=== PATIENT | male | born 1970 | race Caucasian/White ===

== ENCOUNTER 2017-09-09 12:51 | Inpatient (IN) | payer SELFPAY ==
[~2017-09-09] VITALS: Ht 177.8 cm; Wt 96.8 kg
[2017-09-09] VITALS (14 sets, daily range): BP systolic 107–142; BP diastolic 72–97
[~2017-09-09 12:51] MED LIST: LISI10TA PO; VICODIN
--- OUTSIDE RECORDS SUMMARY | 2017-09-09 12:58 | XMS REPORT | Continuity of Care Document ---
Author Author [facility] Organization [facility] Address Unknown Phone Unavailable Allergies Active Description Code Type Severity Reaction Onset Reported/Identified Relationship to Patient Clinical Status Yes Penicillins [id number] Drug Allergy Unknown N/A 04/17/2013 Medications Problems Date Dx Coded Attending Type Code Diagnosis Diagnosed By 06/24/2013 YONG COLLADO MD Ot 724.2 LUMBAGO 06/24/2013 YONG COLLADO MD Ot V57.1 PHYSICAL THERAPY NEC 07/13/2013 YONG COLLADO MD Ot 305.1 TOBACCO USE DISORDER 07/13/2013 YONG COLLADO MD Ot 401.9 HYPERTENSION NOS 07/13/2013 YONG COLLADO MD Ot 722.52 LUMB/LUMBOSAC DISC DEGEN 07/13/2013 YONG COLLADO MD Ot 729.1 MYALGIA AND MYOSITIS NOS 07/13/2013 YONG COLLADO MD Ot 756.12 SPONDYLOLISTHESIS 07/13/2013 YONG COLLADO MD, Ot V58.69 OTH MED,LT,CURRENT USE 05/29/2016 MOE URBINA DO Ot 724.5 BACKACHE NOS 05/29/2016 YONG COLLADO MD Ot 305.1 TOBACCO USE DISORDER 05/29/2016 YONG COLLADO MD Ot 401.9 HYPERTENSION NOS 05/29/2016 YONG COLLADO MD Ot 722.52 LUMB/LUMBOSAC DISC DEGEN 05/29/2016 YONG COLLADO MD Ot 756.12 SPONDYLOLISTHESIS 05/29/2016 YONG COLLADO MD Ot V58.69 OTH MED,LT,CURRENT USE 05/29/2016 MOE URBINA DO Ot 724.2 LUMBAGO 05/29/2016 MOE URBINA DO Ot V15.88 HISTORY OF FALL 05/29/2016 MOE URBINA DO Ot V45.89 POSTSURGICAL STATES NEC 05/29/2016 MOE URBINA DO Ot M54.9 DORSALGIA, UNSPECIFIED 06/06/2016 MOE URBINA DO Ot M54.9 DORSALGIA, UNSPECIFIED 06/08/2016 MOE URBINA DO Ot M54.9 DORSALGIA, UNSPECIFIED Procedures Results Encounters ACCT No. Visit Date/Time Discharge Status Pt. Type Provider Facility Loc./Unit Complaint [id number] 05/29/2016 13:27:00 2015 23:59:59 CLS Outpatient CIARA MOE STERN [facility] RAD BACK PAIN [id number] 12/11/2013 12:01:00 2013 23:59:59 CLS Outpatient KARISHMAMOE NIETO DO [facility] RAD FALL [id number] 07/13/2013 12:03:00 2012 13:24:00 DIS Outpatient YONG COLLADO MD [facility] CARD DDD LUMBAR [id number] 06/26/2013 07:30:00 2012 23:59:59 CLS Outpatient YONG COLLADO MD [facility] CARD DEGENERATIVE DISC DISEASE-LUMBAR [id number] 06/24/2013 14:47:00 2012 16:17:00 DIS Outpatient YONG COLLADO MD [facility] REHAB LUMBAGO [id number] 05/18/2013 08:17:00 2012 23:59:59 CLS Outpatient MOE URBINA DO [facility] RAD BACK PAIN GOING DOWN LEG GETTING WORSE [id number] 04/17/2013 18:22:00 2012 20:45:00 DIS Emergency
[2017-09-09] MEDS ORDERED: ASPIRIN 81 MG CHEW (CHILDREN'S ASA) ONE (13:00)
[2017-09-09] MEDS ORDERED: NITROGLYCERIN 0.4 MG SL TABS BTL 25'S SL ONE (13:00)
[2017-09-09] MEDS: NITROGLYCERIN 0.4 MG SL TABS BTL 25'S SL PRN ×2 (13:02→13:08)
[2017-09-09] MEDS ORDERED: HEParin 1000 UNIT/ML (10ML VIAL) FOR BOLUS ONE ×2 (13:06→13:11)
[2017-09-09] MEDS ORDERED: CLOPIDOGREL 300 MG (PLAVIX) TABLET PO ONE ×2 (13:06→13:15)
[2017-09-09] MEDS ORDERED: NS IV 1000 ML 1,000 ML ONE (13:06)
[2017-09-09] MEDS ORDERED: LIDOCAINE 1% INJ 50 ML (XYLOCAINE) VIAL ONE (13:06)
[2017-09-09] MEDS ORDERED: HEParin (CATH LAB) 2,000 ML IV ONE (13:07)
[2017-09-09] MEDS ORDERED: NITROGLYCERIN DRIP 25 MG/D5W 250 ML IV ONE (13:07)
[2017-09-09] MEDS ORDERED: fentaNYL INJECTION 100 MCG/2 ML AMP ONE (13:09)
--- OUTSIDE RECORDS SUMMARY | 2017-09-09 13:09 | XMS REPORT | Continuity of Care Document ---
Author Author [facility] Organization [facility] Address Unknown Phone Unavailable Allergies Active Description Code Type Severity Reaction Onset Reported/Identified Relationship to Patient Clinical Status Yes Penicillins [id number] Drug Allergy Unknown N/A 04/17/2013 Medications Problems Date Dx Coded Attending Type Code Diagnosis Diagnosed By 06/24/2013 YONG COLLADO MD Ot 724.2 LUMBAGO 06/24/2013 YONG COLLADO MD Ot V57.1 PHYSICAL THERAPY NEC 07/13/2013 YONG COLLADO MD Ot 305.1 TOBACCO USE DISORDER 07/13/2013 YOGN COLLADO MD Ot 401.9 HYPERTENSION NOS 07/13/2013 [...] Ot V15.88 HISTORY OF FALL 05/29/2016 MOE URBNIA DO Ot V45.89 POSTSURGICAL STATES NEC 05/29/2016 MOE URBINA DO Ot M54.9 DORSALGIA, UNSPECIFIED 06/06/2016 MOE URBINA DO Ot M54.9 DORSALGIA, UNSPECIFIED 06/08/2016 MOE URBINA DO Ot M54.9 DORSALGIA, UNSPECIFIED Procedures Results Encounters ACCT No. Visit Date/Time Discharge Status Pt. Type Provider Facility Loc./Unit Complaint [id number] 05/29/2016 13:27:00 2015 23:59:59 CLS Outpatient CIARA MOE STERN [facility] RAD BACK PAIN [id number] 12/11/2013 12:01:00 2013 23:59:59 CLS Outpatient KARISHMAMOE NIETO DO [facility] RAD FALL [id number] 07/13/2013 12:03:00 2012 13:24:00 DIS Outpatient YONG COLLADO MD [facility] CARD DDD LUMBAR [id number] 06/26/2013 07:30:00 2012 23:59:59 CLS Outpatient YONG COLLADO MD [facility] CARD DEGENERATIVE DISC DISEASE-LUMBAR [id number] 06/24/2013 14:47:00 2012 16:17:00 DIS Outpatient YONG COLLADO MD [facility] REHAB LUMBAGO [id number] 05/18/2013 08:17:00 2012 23:59:59 CLS Outpatient MOE URBINA DO [facility] RAD BACK PAIN GOING DOWN LEG GETTING WORSE [id number] 04/17/2013 18:22:00 2012 20:45:00 DIS Emergency
[2017-09-09] MEDS ORDERED: MIDAZOLAM 2 MG/2 ML (VERSED) VIAL ONE ×2 (13:10→14:42)
--- NOTE | 2017-09-09 13:12 | ED Chest Pain ---
General Stated Complaint: CHEST PAINS,LEFT ARM PAIN Source: patient Exam Limitations: no limitations History of Present Illness Time seen by provider: 13:00 Initial Comments Patient presents to ER by private conveyance with a chief complaint that for about 2 hours she's had severe chest pain that was accompanied with a wave of sweats but no nausea. He is having numbness in his left arm and left neck. He's never had any heart disease in the past. He does have a history of high blood pressure. He took his lisinopril this morning but he's not been as good about taking lisinopril because he feels it causes a nagging dry cough. He does not take aspirin. He drives a truck. He smokes a little less than a pack per day of cigarettes. He has no diabetes, hypothyroidism, hypercholesterol, early familial heart disease. His chest pain is eased off a bit since sitting down and is now about a 4 out of 10. Allergies and Home Medications Allergies Coded Allergies: Penicillins (Verified Allergy, Unknown, 09/09/17) Home Medications Hydrocodone/Acetaminophen 1 Each Tablet, 1 TAB PO BID PRN for PAIN-MODERATE, ( Reported) Review of Systems Constitutional: No chills, No fever Respiratory: Denies Cough, Shortness of Air Cardiovascular: Chest Pain, Denies Edema, Denies Palpitations, Denies Syncope Gastrointestinal: Denies Constipated, Denies Diarrhea, Denies Nausea Genitourinary: Denies Burning, Denies Discharge Past Okrxlju-Ylolhj-Qwcdrn Hx Patient Social History Recreational Drug Use: No Smoking Status: Current Everyday Smoker Type Used: Cigarettes (1 ppd) Recent Foreign Travel: No Contact w/Someone Who Travel: No Physical Exam Vital Signs Capillary Refill : General Appearance: Anxious, Moderate Distress HEENT: PERRL/EOMI, Pharynx Normal Neck: Full Range of Motion, Non Tender, Supple Respiratory: Chest Non Tender, Lungs Clear, Normal Breath Sounds Cardiovascular: Regular Rate, Rhythm, No Edema, Normal Peripheral Pulses Gastrointestinal: Non Tender, Soft Extremity: Normal Capillary Refill, No Pedal Edema Neurologic/Psychiatric: Alert, Oriented x3 Skin: Normal Color, Warm/Dry Progress/Results/Core Measures Results/Orders Lab Results Laboratory Tests Test 09/09/17 12:58 Range/Units White Blood Count 12.4 H 4.3-11.0 10^3/uL Red Blood Count 5.55 4.35-5.85 10^6/uL Hemoglobin 15.7 13.3-17.7 G/DL Hematocrit 47 40-54 % Mean Corpuscular Volume 85 80-99 FL Mean Corpuscular Hemoglobin 28 25-34 PG Mean Corpuscular Hemoglobin Concent 33 32-36 G/DL Red Cell Distribution Width 14.1 10.0-14.5 % Platelet Count 292 130-400 10^3/uL Mean Platelet Volume 10.8 H 7.4-10.4 FL Neutrophils (%) (Auto) 72 42-75 % Lymphocytes (%) (Auto) 24 12-44 % Monocytes (%) (Auto) 3 0-12 % Eosinophils (%) (Auto) 1 0-10 % Basophils (%) (Auto) 0 0-10 % Neutrophils # (Auto) 8.9 H 1.8-7.8 X 10^3 Lymphocytes # (Auto) 2.9 1.0-4.0 X 10^3 Monocytes # (Auto) 0.4 0.0-1.0 X 10^3 Eosinophils # (Auto) 0.1 0.0-0.3 10^3/uL Basophils # (Auto) 0.1 0.0-0.1 10^3/uL Prothrombin Time 12.7 12.2-14.7 SEC INR Comment 0.9 0.8-1.4 Activated Partial Thromboplast Time 23 L 24-35 SEC Sodium Level 139 135-145 MMOL/L Potassium Level 3.9 3.6-5.0 MMOL/L Chloride Level 103 98-107 MMOL/L Carbon Dioxide Level 25 21-32 MMOL/L Anion Gap 11 5-14 MMOL/L Blood Urea Nitrogen 7 7-18 MG/DL Creatinine 0.94 0.60-1.30 MG/DL Estimat Glomerular Filtration Rate > 60 BUN/Creatinine Ratio 7 Glucose Level 223 H 70-105 MG/DL Calcium Level 8.9 8.5-10.1 MG/DL Magnesium Level 1.9 1.8-2.4 MG/DL Total Bilirubin 0.7 0.1-1.0 MG/DL Aspartate Amino Transf (AST/SGOT) 29 5-34 U/L Alanine Aminotransferase (ALT/SGPT) 34 0-55 U/L Alkaline Phosphatase 89 40-136 U/L Myoglobin 38.5 10.0-92.0 NG/ML Troponin I < 0.30 <0.30 NG/ML Total Protein 7.4 6.4-8.2 GM/DL Albumin 4.3 3.2-4.5 GM/DL My Orders Orders - RYAN GAMA Nitroglycerin 0.4 Mg Btl 25's (Nitrostat (09/09/17 13:00) Aspirin Chewable Tablet (Baby Aspirin Ch (09/09/17 13:00) Cbc With Automated Diff (09/09/17 13:04) Magnesium (09/09/17 13:04) Ekg Tracing (09/09/17 13:04) Cardiac Profile 1 (09/09/17 13:04) Comprehensive Metabolic Panel (09/09/17 13:04) Myoglobin Serum (09/09/17 13:04) Protime With Inr (09/09/17 13:04) Partial Thromboplastin Time (09/09/17 13:04) O2 (09/09/17 13:04) Monitor-Rhythm Ecg Trace Only (09/09/17 13:04) Lipid Panel (09/10/17 06:00) Aspirin Chewable Tablet (Baby Aspirin Ch (09/09/17 13:15) Nitroglycerin 0.4 Mg Btl 25's (Nitrostat (09/09/17 13:15) Saline Lock/Iv-Start (09/09/17 13:04) Clopidogrel Tablet (Plavix Tablet) (09/09/17 13:15) ECG Initial ECG Impression Date: Sep 09, 2017 Initial ECG Impression Time: 12:55 Initial ECG Rate: 90 Initial ECG Rhythm: Normal Sinus Initial ECG Intervals: Normal Initial ECG Impression: Acute DE Initial ECG Comparisson: No Previous ECG Available Comment Inferior DE with reciprocal ST depression in left, 1 and V2. Consults Consults : Consulting Physician: Odalys MO MD Consults Notes Discussed ST elevation in inferior leads and reciprocal ST depression in left. He asked us to give Plavix 600 mg and activate catheter lab and he immediately came down and saw the patient. Departure Impression Impression: Primary Impression: STEMI (ST elevation myocardial infarction) Qualified Codes: I21.19 - ST elevation (STEMI) myocardial infarction involving other coronary artery of inferior wall Disposition: ADMITTED INPATIENT Condition: Critical Admissions Decision to Admit Reason: Admit from ER (General) Decision to Admit/Date: Sep 09, 2017 Time/Decision to Admit Time: 13:00 Departure-Patient Inst. Referrals: MOE URBINA DO (PCP/Family) Primary Care Physician Copy Copies To 1: MOE URBINA DO Copies To 2: Odalys MO MD, TITUS J Sep 09, 2017 13:12
[2017-09-09] MEDS ORDERED: ASPIRIN 81 MG CHEW (CHILDREN'S ASA) PO ONE (13:15)
[2017-09-09 13:16] LABS: BASOPHILS # (AUTO) 0.1 10^3/uL (0.0-0.1); BASOPHILS % (AUTO) 0 % (0-10); EOSINOPHILS # (AUTO) 0.1 10^3/uL (0.0-0.3); EOSINOPHILS % (AUTO) 1 % (0-10); LYMPHOCYTES # (AUTO) 2.9 X 10^3 (1.0-4.0); LYMPHOCYTES % (AUTO) 24 % (12-44); MEAN CORPUSCULAR HEMOGLOBIN 28 PG (25-34); MEAN CORPUSCULAR HGB CONC 33 G/DL (32-36); MEAN CORPUSCULAR VOLUME 85 FL (80-99); MEAN PLATELET VOLUME 10.8 FL (7.4-10.4); MONOCYTES # (AUTO) 0.4 X 10^3 (0.0-1.0); MONOCYTES % (AUTO) 3 % (0-12); NEUTROPHILS # (AUTO) 8.9 X 10^3 (1.8-7.8); NEUTROPHILS % (AUTO) 72 % (42-75); PLATELET COUNT 292 10^3/uL (130-400); RED BLOOD COUNT 5.55 10^6/uL (4.35-5.85); RED CELL DISTRIBUTION WIDTH 14.1 % (10.0-14.5); WHITE BLOOD COUNT 12.4 10^3/uL (4.3-11.0)
[2017-09-09 13:28] LABS: INR 0.9 (0.8-1.4); PROTHROMBIN TIME PATIENT 12.7 SEC (12.2-14.7)
[2017-09-09] MEDS ORDERED: ATROPINE INJECTION 1 MG/10 ML SYR (ABBOTT) ONE ×2 (13:28→13:29)
[2017-09-09 13:36] LABS: ALANINE AMINOTRANSFERASE 34 U/L (0-55); ALBUMIN 4.3 GM/DL (3.2-4.5); ANION GAP 11 MMOL/L (5-14); ASPARTATE AMINO TRANSFERASE 29 U/L (5-34); BILIRUBIN,TOTAL 0.7 MG/DL (0.1-1.0); BLOOD UREA NITROGEN 7 MG/DL (7-18); BUN/CREATININE RATIO 7; CALCIUM 8.9 MG/DL (8.5-10.1); CARBON DIOXIDE 25 MMOL/L (21-32); CHLORIDE 103 MMOL/L (98-107); CREATININE SERUM 0.94 MG/DL (0.60-1.30); GFR ESTIMATED > 60; GLUCOSE 223 MG/DL (70-105); MAGNESIUM 1.9 MG/DL (1.8-2.4); POTASSIUM 3.9 MMOL/L (3.6-5.0); SODIUM 139 MMOL/L (135-145); TOTAL PROTEIN 7.4 GM/DL (6.4-8.2)
[2017-09-09 13:42] LABS: MYOGLOBIN SERUM 38.5 NG/ML (10.0-92.0)
[2017-09-09] MEDS ORDERED: EPTIFIBATIDE BOLUS 20 ML IV ONE (14:18)
[2017-09-09] MEDS ORDERED: EPTIFIBATIDE DRIP 100 ML IV ONE (14:28)
[2017-09-09] MEDS: EPTIFIBATIDE DRIP 100 ML IV SCH ×2 (14:30→20:15)
[2017-09-09] MEDS ORDERED: meTOprolol 5 MG/5 ML (LOPRESSOR) VIAL ONE (14:48)
--- NOTE | 2017-09-09 15:10 | Cardiac Procedure Note-CS/ASA ---
Pre-Procedure Note Pre-Op Procedure Note H&P Reviewed The H&P was reviewed, patient examined and no changes noted. Date H&P Reviewed: Sep 09, 2017 Time H&P Reviewed: 13:00 Conscious Sedation Pre-Proced Time Reviewed: 13:00 ASA Class: 3 Airway Mallampati Classification: ([place] appropriate class) I. II. III, IV Lungs Heart ASA score ASA 1: a normal healthy patient ASA 2: a patient with a mild systemic disease (mid diabetes, controlled hypertension, obesity ASA 3: a patient with a severe systemic disease that limits activity (angina , COPD, prior Myocardial infarction) ASA 4: a patient with an incapacitating disease that is a constant threat to life (CHF, renal failure) ASA 5: a moribund patient not expected to survive 24 hrs. (ruptured aneurysm) ASA 6: a declared brain patient whose organs are being harvested. For emergent operations, add the letter E after the classification Grade 1 Sedation Plan: Analgesia, Amnesia, Plan communicated to team members, Discussed options with patient/fam, Discussed risks with patient/fam Note The patient is an appropriate candidate to undergo the planned procedure, sedation, and anesthesia. The patient immediately re-assessed prior to indication. Odalys MO MD Sep 09, 2017 3:10 pm
--- NOTE | 2017-09-09 15:10 | History & Physicial-Cardiolgy ---
HPI-Cardiology Cardiology Consultation: Date of Consultation 09/09/17 Date of Admission Attending Physician Odalys Mo MD Admitting Physician Ruslan Fowler DO Consulting Physician Odalys MO MD HPI: Time Seen by Provider: 13:00 Chief Complaint: chest pain this is a 47-year-old gentleman with a history of hypertension and active smoking. He presents with severe chest pain for 2 hours before admission. Chest pain intensity was 7/10. Severe intensity. No significant radiation. No exacerbating or relieving factors. Nitroglycerin in the ER reduce the pain to 5/10. No associated cardiac symptoms. Review of Systems-Cardiology Review of Systems Constitutional: No As described under HPI, No no symptoms reported, No chills, No fever, No lightheadedness, No malaise, No tiredness, No weight loss, No weight gain, No other Eyes: No As described under HPI, No no symptoms reported, No blindness, No blurred vision, No contact lenses, No drainage, No decreased acuity, No foreign body sensation, No glasses, No inflammation, No pain, No photophobia, No previous injury, No shadows, No tunnel vision, No other, No vision change Ears/Nose/Throat: No As described under HPI, No no symptoms reported, No chronic hearing loss, No epistaxis, No ear discharge, No ear pain, No loose teeth, No mouth pain, No mouth swelling, No nasal drainage, No nose pain, No recent hearing loss, No throat pain, No throat swelling, No ulcerations, No other Respiratory: No no symptoms reported, No As described under HPI, No cough, No orthopnea, No shortness of breath, No SOB with excertion, No SOB at rest, No stridor, No wheezing, No other Cardiovascular: chest pain Gastrointestinal: No no symptoms reported, No As described under HPI, No abdomen distended, No abdominal pain, No blood streaked bowels, No constipation , No diarrhea, No difficulty swallowing, No nausea, No poor appetite, No poor fluid intake, No rectal bleeding, No vomiting, No other, No nausea/vomiting/ diarrhea, No stool coloration changes Genitourinary: No no symptoms reported, No As described under HPI, No burning, No dysuria, No discharge, No frequency, No flank pain, No hematuria, No incontinence, No pain, No urgency, No other, No urine frequency changes, No urine coloration changes Musculoskeletal: No no symptoms reported, No As describe under HPI, No back pain, No gout, No joint pain, No joint swelling, No muscle pain, No muscle stiffness, No neck pain, No other Skin: No no symptoms reported, No As described under HPI, No change in color, No change in hair/nails, No dryness, No lesions, No lumps, No rash, No other, No skin related problems, No ulcerations, No rash on exposed areas, No ulcerations on exposed areas Psychiatric/Neurological: No no symptoms reported, No As described under HPI, No anxiety, No depression, No emotional problems, No headache, No numbness, No pre-existing deficit, No seizure, No tingling, No tremors, No weakness, No other , No focal weakness, No syncope Hematologic: No no symptoms reported, No As described under HPI, No anemia, No blood clots, No easy bleeding, No easy bruising, No swollen glands, No other, No bleeding abnormalities DKB-Rcgaqh-Hznusi Hx Patient Social History Recreational Drug Use: No Smoking Status: Current Everyday Smoker Type Used: Cigarettes (1 ppd) Recent Foreign Travel: No Past Medical History PMH As described under Assessment. Allergies and Home Medications Allergies Coded Allergies: Penicillins (Verified Allergy, 04/17/13) Home Medications Lisinopril 10 Mg Tablet, 10 MG PO DAILY, (Reported) [Vicodin] , 5 MG PRN, (Reported) Physical Exam-Cardiology Physical Exam Vital Signs/I&O Capillary Refill : Constitutional: No appears stated age, No AAO x 3, No apparent distress, No PERRL, No well-developed, No well-nourished, No other HEENT: No PERRL, No normal ENT inspection, No TMs normal, No pharynx normal, No scleral icterus (R), No scleral icterus (L), No pale conjunctivae (R), No pale conjunctivae (L), No photophobia, No TM abnormal (R), No TM abnormal (L), No pharyngeal erythema, No tonsillar exudate, No other, No discharge, No EOMI, No hearing is well preserved, No hard of hearing, No oral hygience is good, No ulceration, No xanthelasmas are seen Neck: No non-tender, No full range of motion, No supple, No normal inspection, No carotid bruit, No limited range of motion, No lymphadenopathy (R), No lymphadenopathy (L), No tender lateral, No tender midline, No thyromegaly, No other, No carotid pulses are 2 + bilaterally, No with good upstrokes Respiratory: No accessory muscle use, No respiratory distress, No chest tender , No chest expansion is symmetric, No chest is bilaterally symmetric, No lungs clear to percussion, No lungs clear to auscultation, No crackles, No rhonchi, No rales, No stridor, No wheezing, No pleural rub, No other Cardiovascular: regular rate-rhythm, No irregularly irregular, No extra beats, No parasternal heave is noted, No JVD, No edema, No bradycardia, No tachycardia , No point of maximal impulse, No cardiac thrills are palpable, S1 and S2, No gallop/S3, No gallop/S4, No diastolic murmur, No systolic murmur, No friction rub, No click, No other Gastrointestinal: No tender, No soft, No round, No distended, No pulsatile mass , No organomegaly, No guarding, No rebound, No tenderness, No hernia, No mass, No audible bowel sounds, No abnormal bowel sounds, No abdominal bruits, No spleenomegaly, No other Rectal: deferred Extremities: No normal range of motion, No non-tender, No normal inspection, No pedal edema, No calf tenderness, No normal capillary refill, No pelvis stable , No calf tenderness, No inflammation, No pedal edema, No slow capillary refill , No swelling, No other, No abrasion, No clubbing, No cyanosis, No ecchymosis, No laceration, No no lower extremity edema bilateral, No significant edema, No tenderness, No wound Neurologic/Psychiatric: No chair mechanic II-XII nml as tested, No no motor/sensory deficits, No alert, No normal mood/affect, No oriented x 3, No abnormal cerebellar tests, No abnormal chair mechanic II-XII, No abnormal gait, No aphasia, No EOM palsy, No facial droop, No motor weakness, No sensory deficit, No depressed affect, No disoriented x 3, No other, No grossly intact, No power is 5/5 both on sides Skin: No normal color, No warm/dry, No cyanosis, No cool, No diaphoresis, No damp, No ecchymosis, No jaundice, No mottled, No pallor, No rash, No tattoos/ piercings, No ulcerations, No rash on exposed areas, No ulcerations on exposed areas, No other Data Review Labs Laboratory Tests 09/09/17 12:58: White Blood Count 12.4H, Red Blood Count 5.55, Hemoglobin 15.7, Hematocrit 47, Mean Corpuscular Volume 85, Mean Corpuscular Hemoglobin 28, Mean Corpuscular Hemoglobin Concent 33, Red Cell Distribution Width 14.1, Platelet Count 292, Mean Platelet Volume 10.8H, Neutrophils (%) (Auto) 72, Lymphocytes (%) (Auto) 24 , Monocytes (%) (Auto) 3, Eosinophils (%) (Auto) 1, Basophils (%) (Auto) 0, Neutrophils # (Auto) 8.9H, Lymphocytes # (Auto) 2.9, Monocytes # (Auto) 0.4, Eosinophils # (Auto) 0.1, Basophils # (Auto) 0.1, Prothrombin Time 12.7, INR Comment 0.9, Activated Partial Thromboplast Time 23L, Sodium Level 139, Potassium Level 3.9, Chloride Level 103, Carbon Dioxide Level 25, Anion Gap 11, Blood Urea Nitrogen 7, Creatinine 0.94, Estimat Glomerular Filtration Rate > 60 , BUN/Creatinine Ratio 7, Glucose Level 223H, Calcium Level 8.9, Magnesium Level 1.9, Total Bilirubin 0.7, Aspartate Amino Transf (AST/SGOT) 29, Alanine Aminotransferase (ALT/SGPT) 34, Alkaline Phosphatase 89, Myoglobin 38.5, Troponin I < 0.30, Total Protein 7.4, Albumin 4.3 ECG Impression ECG Initial ECG Rhythm: Normal Sinus Initial ECG Impression: Acute DE A/P-Cardiology Assessment/Admission Diagnosis inferior STEMI, active smoking, hypertension Plan emergent coronary angiography. Bolus aspirin, bolus Plavix, bolus heparin given. informed consent was taken. All the risks and complication were explained in detail. Including risk of stroke, DE and even were discussed. Smoking cessation was strongly recommended. Echocardiogram. Odalys MO MD Sep 09, 2017 3:10 pm
--- NOTE | 2017-09-09 15:14 | Cardiology Post Procedure Note ---
Post-Procedure Note Physician (s)/Supervisor Loading (s) Physician Odalys MO MD Pre-Procedure Diagnosis Pre-Procedure Diagnosis: inferior STEMI Post-Procedure Note Procedure Start Date: Sep 09, 2017 Procedure Start Time: 13:00 Name of Procedure: coronary angiography, left heart catheterization, primary PCI to the ostium of the RCA, IVUS, PCI to the mid LAD. Findings/Procedure Note subtotal ostial RCA lesion treated successfully with bare metal stent. total balloon time was 37 minutes. Severe long mid LAD lesion treated successfully with a drug-eluting stent. mild mid OM1 disease. Normal LV function with LVEDP 21 mmHg. Anesthesia Type: Conscious Sedation Estimated blood loss (mL): 30 Contrast Amount: 279 Post-Procedure Diagnosis Post-operative diagnosis: inferior STEMI status post successful primary PCI to the ostial RCA. PCI to mid LAD. Odalys MO MD Sep 09, 2017 3:14 pm
[2017-09-09] MEDS ORDERED: PATIENT MAY USE OWN MEDS, ALL PO SCH (15:15)
[2017-09-09] MEDS: NS IV 1000 ML 1,000 ML IV SCH ×2 (15:40→18:29)
[2017-09-09] MEDS ORDERED: INFLUENZA TRIvalent 2017-2018 0.5 ML/45 MCG SYR IM ONE (16:15)
[2017-09-09] MEDS ORDERED: HYDR-3812 PO (17:06)
[2017-09-09] MEDS: ATORVASTATIN 80 MG (LIPITOR) TABLET PO SCH (20:15)
[2017-09-09] MEDS: meTOprolol TARTRATE 50 MG (LOPRESSOR) TAB PO SCH (20:15)
--- NOTE | 2017-09-09 23:30 | CARDIAC CATHETERIZATION ---
DATE OF SERVICE: 09/09/2017 PRIMARY PCI REPORT INDICATIONS Inferior STEMI. PREOPERATIVE DIAGNOSIS: Inferior STEMI. POSTOPERATIVE DIAGNOSES: 1. Inferior STEMI, successful primary PCI to ostial RCA. 2. PCI to mid LAD. HISTORY: The patient is a 47-year-old gentleman with history of hypertension and active smoking. He presented with a 2-hour history of severe chest pain. EKG showed inferior ST elevation MT. Emergent coronary angiography was recommended. PROCEDURES PERFORMED: 1. Coronary angiography. 2. Left heart catheterization. 3. Primary PCI to ostial RCA with bare metal stent. 4. IVUS evaluation of RCA stent. 5. PCI to mid LAD with drug-eluting stent. COMPLICATIONS: None. ESTIMATED BLOOD LOSS: 30 mL. ANESTHESIA: Conscious sedation. ANTICOAGULATION: IV heparin and Integrilin. CONTRAST DOSE: 279 mL of omnipaque. Fluoroscopy dose: 2392 milligrays. FLUOROSCOPY TIME: 20.4 milligrays. DESCRIPTION OF PROCEDURE: The patient was brought to the aquatic laborer after informed consent was taken. All the risks and complications were explained in detail. The patient was draped and prepped in the usual sterile fashion. Access was gained in the right femoral artery with a 6-[place] sheath. Coronary angiography was performed with a JR4 guide catheter, JL4 diagnostic catheter and a pigtail catheter. FINDINGS: 1. RCA: Severe subtotal 99% stenosis of the proximal/ostial RCA with JAIMIE 2 flow. 2. Left main patent. 3. LAD: Severe 95% stenosis of the mid LAD. The LAD is a transapical vessel. 4. Left circumflex artery mild OM1 disease. Stenosis severity 20% to 30%. 5. Left heart catheterization, aortic pressure 127/84 mmHg. LV pressure 136/10 mmHg. LVDP 22 mmHg. No significant wall motion abnormalities. No gradient across the aortic valve. RECOMMENDATIONS: 1. Primary PCI to the ostial RCA is recommended. 2. PCI to mid LAD is recommended. PCI DETAILS: We took a JR4 guide catheter, Whisper extra support wire and IV heparin and Integrilin was given for anticoagulation. ACT was over 200 seconds. The lesion was crossed with a Whisper wire and balloon dilatation was performed with a 2.0 x 15 Emerge balloon. The first inflation was performed for 10 atmospheres. A door to balloon time was 37 minutes. We then took an integrity bare metal 3.0 x 15 bare metal stent and deployed it in the vessel 14 atmospheres for 84 seconds. We used the same stent balloon and did another post-dilatation at 18 atmospheres for 31 seconds. IVUS evaluation of the stent was done because there was a concern of malapposition. IVUS was performed with a [employer] catheter. IVUS evaluation showed possible malapposition in the stent. Therefore, we took an NC Quantum 3.5 x 12 [employer] balloon and we performed two inflations at 16 atmospheres for 59 seconds and 16 atmospheres for 30 seconds in the stent segment. Post-dilatation, a filling defect was noted, which was suspicious for thrombus formation. Therefore, IVUS was performed again, which showed a clot in the stent. ACT at this point in time was 213 seconds. Integrilin double bolus was given. We went in again with the same 3.5 NC balloon and performed two inflations at 10 atmospheres for 58 seconds and 12 atmospheres for 44 seconds with significant resolution of clot. The wire and balloon were taken out and post-angiogram showed excellent results with no residual stenosis and JAIMIE 3 flow. We took an EBU 3.5 guide catheter, Whisper extra support wire. The lesion in the mid LAD was crossed with the Whisper wire. We then took a Resolute Integrity 2.75 x 30 mm drug-eluting stent and deployed it at 14 atmospheres for 61 seconds and then we performed 2 post-dilatation in the mid and proximal segment of the stent with a 35 NC Quantum balloon. The mid, distal segment was postdilated with 12 atmospheres at 33 seconds and the proximal segment was postdilated with 16 atmosphere at 34 seconds. Excellent results were noted with JAIMIE 3 flow and no residual stenosis. The stent and balloon was taken out and post-coronary angiography showed no complication. IMPRESSION AND CONCLUSION: 1. Primary PCI to the ostial RCA with bare metal stent due to the inferior STEMI. 2. PCI to the mid LAD with drug-eluting stent. 3. Aspirin and Plavix for at least a year. The patient will be started on lisinopril, beta bharti and high dose statin. 4. Smoking cessation was strongly recommended. 5. The patient will be transferred to the ICU. 6. Integrilin infusion for 18 hours. 7. Echocardiogram will be performed. Job ID: [id number] DocumentID: [id number] Dictated Date: 09/09/2017 15:34:59 Roll Scale Man Date: 09/09/2017 23:29:06 Dictated By: ANY MO MD MTDD
[2017-09-10] VITALS (16 sets, daily range): BP systolic 92–142; BP diastolic 60–91
[2017-09-10] MEDS: EPTIFIBATIDE DRIP 100 ML IV SCH (03:18)
[2017-09-10 05:40] LABS: RED BLOOD COUNT 4.81 10^6/uL (4.35-5.85); RED CELL DISTRIBUTION WIDTH 14.3 % (10.0-14.5)
[2017-09-10 06:05] LABS: ANION GAP 7 MMOL/L (5-14); BLOOD UREA NITROGEN 7 MG/DL (7-18); BUN/CREATININE RATIO 10; CALCIUM 8.6 MG/DL (8.5-10.1); CARBON DIOXIDE 25 MMOL/L (21-32); CHLORIDE 107 MMOL/L (98-107); CHOLESTEROL 140 MG/DL (< 200); CREATININE SERUM 0.73 MG/DL (0.60-1.30); DIRECT LDL 92 MG/DL (1-129); GFR ESTIMATED > 60; GLUCOSE 106 MG/DL (70-105); POTASSIUM 4.1 MMOL/L (3.6-5.0); SODIUM 139 MMOL/L (135-145); TRIGLYCERIDES 206 MG/DL (<150); VLDL CHOLESTEROL 41 MG/DL (5-40)
[2017-09-10 06:15] LABS: TROPONIN I 17.84 NG/ML (<0.30)
[2017-09-10] MEDS: CLOPIDOGREL 75 MG (PLAVIX) TABLET PO SCH (08:24)
[2017-09-10] MEDS: lisINopril 10 MG (PRINIVIL) TAB PO SCH (08:24)
[2017-09-10] MEDS: ASPIRIN E.C. 81 MG (ECOTRIN) TAB PO SCH (08:24)
[2017-09-10] MEDS: meTOprolol TARTRATE 50 MG (LOPRESSOR) TAB PO SCH ×2 (08:24→20:18)
[2017-09-10] MEDS: NS IV 1000 ML 1,000 ML IV SCH (11:25)
--- NOTE | 2017-09-10 13:14 | Cardiology Progress Note ---
Cardiology SOAP Progress Note Subjective: No chest pain. Objective: I&O/Vital Signs Vital Sign - Last 12Hours 09/10/17 09/10/17 09/10/17 09/10/17 02:00 03:00 04:00 04:00 Pulse 81 88 72 Resp 22 22 B/P (MAP) 101/88 (92) 116/74 (88) 102/72 (82) Pulse Ox 96 98 97 O2 Delivery Nasal Cannula Nasal Cannula Nasal Cannula Nasal Cannula O2 Flow Rate 2.00 2.00 2.00 2.00 09/10/17 09/10/17 09/10/17 09/10/17 04:01 05:00 06:00 07:00 Temp 96.6 Pulse 72 74 75 B/P (MAP) 121/83 (96) 132/85 (101) Pulse Ox 95 97 O2 Delivery Nasal Cannula Nasal Cannula O2 Flow Rate 2.00 2.00 09/10/17 09/10/17 09/10/17 09/10/17 07:52 07:52 08:00 09:00 Temp 98.9 Pulse 78 83 91 Resp 23 17 16 B/P (MAP) 120/78 (92) 127/81 (96) 142/91 (108) Pulse Ox 95 93 94 O2 Delivery Room Air Room Air Room Air Room Air 09/10/17 09/10/17 09/10/17 09/10/17 10:00 11:00 12:22 12:23 Temp 97.2 Pulse 59 63 62 Resp 28 13 14 B/P (MAP) 123/90 (101) 124/84 (97) 102/68 (79) Pulse Ox 99 97 100 O2 Delivery Room Air Room Air Room Air Room Air Intake and Output 09/10/17 00:00 Intake Total 1640 ml Output Total 1375 ml Balance 265 ml Weight (Pounds): 211 Weight (Ounces): 6.0 Weight (Calculated Kilograms): [id number] Side: right Groin site without hematoma: Yes Condition: DP/PT pulses palpable, extremity w/d/p Drainage: No Constitutional: No appears stated age, No AAO x 3, No apparent distress, No PERRL, No well-developed, No well-nourished, No other Respiratory: No accessory muscle use, No respiratory distress, No chest tender , No chest expansion is symmetric, No chest is bilaterally symmetric, No lungs clear to percussion, No lungs clear to auscultation, No crackles, No rhonchi, No rales, No stridor, No wheezing, No pleural rub, No other Cardiovascular: regular rate-rhythm, No irregularly irregular, No extra beats, No parasternal heave is noted, No JVD, No edema, No bradycardia, No tachycardia , No point of maximal impulse, No cardiac thrills are palpable, S1 and S2, No gallop/S3, No gallop/S4, No diastolic murmur, No systolic murmur, No friction rub, No click, No other Gastrointestional: No tender, No soft, No round, No distended, No pulsatile mass, No organomegaly, No guarding, No rebound, No tenderness, No hernia, No mass, No audible bowel sounds, No abnormal bowel sounds, No abdominal bruits, No spleenomegaly, No other Extremities: No normal range of motion, No non-tender, No normal inspection, No pedal edema, No calf tenderness, No normal capillary refill, No pelvis stable , No calf tenderness, No inflammation, No pedal edema, No slow capillary refill , No swelling, No other, No abrasion, No clubbing, No cyanosis, No ecchymosis, No laceration, No no lower extremity edema bilateral, No significant edema, No tenderness, No wound Neurologic/Psychiatric: No career consultant II-XII nml as tested, No no motor/sensory deficits, No alert, No normal mood/affect, No oriented x 3, No abnormal cerebellar tests, No abnormal career consultant II-XII, No abnormal gait, No aphasia, No EOM palsy, No facial droop, No motor weakness, No sensory deficit, No depressed affect, No disoriented x 3, No other, No grossly intact, No power is 5/5 both on sides Skin: No normal color, No warm/dry, No cyanosis, No cool, No diaphoresis, No damp, No ecchymosis, No jaundice, No mottled, No pallor, No rash, No tattoos/ piercings, No ulcerations, No rash on exposed areas, No ulcerations on exposed areas, No other Results/Procedures: Labs Laboratory Tests 09/10/17 05:25: White Blood Count 14.0H, Red Blood Count 4.81, Hemoglobin 13.6, Hematocrit 42, Mean Corpuscular Volume 87, Mean Corpuscular Hemoglobin 28, Mean Corpuscular Hemoglobin Concent 32, Red Cell Distribution Width 14.3, Platelet Count 267, Mean Platelet Volume 11.0H, Sodium Level 139, Potassium Level 4.1, Chloride Level 107, Carbon Dioxide Level 25, Anion Gap 7, Blood Urea Nitrogen 7, Creatinine 0.73, Estimat Glomerular Filtration Rate > 60, BUN/Creatinine Ratio 10, Glucose Level 106H, Calcium Level 8.6, Troponin I 17.84*H, Triglycerides Level 206H, Cholesterol Level 140, LDL Cholesterol Direct 92, VLDL Cholesterol 41H, HDL Cholesterol 21L A/P: Assessment/Dx: inferior STEMI, active smoking, hypertension Plan: Inferior STEMI: Primary PCI to ostial RCA with bare metal stent and PCI to mid LAD with drug-eluting stent done yesterday. Aspirin, Plavix, statin, metoprolol , lisinopril. Integrilin infusion discontinued this morning. Elevated troponin as expected. Repeat troponin tomorrow morning. Echocardiogram shows good LV function with mild basal inferior hypokinesis. Discussed at length with the patient about medications as well as his condition. Vital signs stable therefore need to continue same dosages of medications. Smoking cessation was strongly recommended. Hyperlipidemia: Statin therapy initiated. Hypertension: Continue lisinopril. Thank you for your consultation. Please call me if you have any questions. Yogi Clay MD, FACP, FACC, FSCAI, FHRS, CCDS Interventional Cardiology Cardiac Electrophysiology Vascular Medicine and Endovascular Interventions Clinical Quality Measures AMI/AHF: ASA po Prior to arrival: Odalys Cespedes MD Sep 10, 2017 1:14 pm
[2017-09-10] MEDS: ATORVASTATIN 80 MG (LIPITOR) TABLET PO SCH (20:19)
[2017-09-11 00:26] VITALS: BP 114/60
[2017-09-11 06:56] VITALS: BP 125/73
[2017-09-11 07:52] VITALS: BP 144/87
[2017-09-11] MEDS: ASPIRIN E.C. 81 MG (ECOTRIN) TAB PO SCH (08:17)
[2017-09-11] MEDS: lisINopril 10 MG (PRINIVIL) TAB PO SCH (08:17)
[2017-09-11] MEDS: meTOprolol TARTRATE 50 MG (LOPRESSOR) TAB PO SCH (08:17)
[2017-09-11] MEDS: CLOPIDOGREL 75 MG (PLAVIX) TABLET PO SCH (08:17)
[2017-09-11] MEDS ORDERED: METO50TA15 PO (09:25)
[2017-09-11] MEDS ORDERED: ASPI-983 PO (09:25)
[2017-09-11] MEDS ORDERED: LISI10TA2 PO (09:25)
[2017-09-11] MEDS ORDERED: CLOP75TA28 PO (09:25)
[2017-09-11] MEDS ORDERED: ATOR80TA76 PO (09:25)
--- NOTE | 2017-09-11 09:26 | Discharge Inst-Post CATH ---
Discharge Inst-CATH Post Cardiac Cath D/C Inst Follow Up/Plan Dr Clay in one to two weeks. CARDIAC CATH DISCHARGE INSTRUCTIONS *Hold Metformin for 48 hours post heart cath. ACTIVITY * Go Home directly and rest. * Limit activity of the leg (or wrist if it was used) for 7 days including aerobics, swimming, jogging, bicycling, etc. * Restrict stair-climbing for 7 days if possible, if not, climb up with your non -cath leg, then bring together on the same step. * Avoid lifting, pushing, pulling or excessive movement of the affected extremity for 7 days. * Customary sexual activity may be resumed after 2 days-use caution not to use a position that strains or causes pain to the affected extremity. * No driving for 24 hours. * NO SMOKING. * Avoid straining for bowel movements for 7 days. * Gentle walking on level ground is allowed. * Returning to work will depend on the type of procedure and the results. Your doctor will discuss this with you. CALL YOUR DOCTOR FOR ANY OF THE FOLLOWING: *If bleeding from the puncture site occurs- Apply gentle pressure to site with clean cloth and call your doctor or EMS. * If a knot or lump forms under the skin, increases in size, or causes pain. * If bruising appears to be worsening or moving further down your leg instead of disappearing. * Temperature above 101 F. CARE OF YOUR GROIN INCISION; * Bruising or purple discoloration of the skin near the puncture site is common. * You may shower only, no bathtub bathing for 5 days. Be careful to avoid slipping as your leg may feel stiff. * If a closure device was used on your femoral artery, please see the attached guide regarding care of the device and your leg. * REMOVE the dressing from your groin the next day after your procedure in the shower. CARE OF YOUR WRIST INCISION; * Bruising or purple discoloration of the skin near the puncture site is common. * You may shower. * DO NOT submerge wrist. * Remove dressing in 24 hours. Odalys CLAY MD Sep 11, 2017 9:26 am
--- NOTE | 2017-09-11 09:26 | Cardiology Discharge Summary ---
Diagnosis/Chief Complaint Date of Admission Sep 09, 2017 at 13:07 Date of Discharge 09/11/2017 Admission Diagnosis Acute inferior STEMI Final/Discharge Diagnosis Acute inferior STEMI, status post primary PCI to ostial RCA and mid LAD. Chief Complaint/HPI Chief Complaint/HPI this is a 47-year-old gentleman with a history of hypertension and active smoking. He presents with severe chest pain for 2 hours before admission. Chest pain intensity was 7/10. Severe intensity. No significant radiation. No exacerbating or relieving factors. Nitroglycerin in the ER reduce the pain to 5/10. No associated cardiac symptoms. Discharge Summary Procedures Primary PCI to ostial RCA with bare metal stent and PCI to mid LAD with drug- eluting stent. Discharge Physical Examination Stable cardiovascular examination. Normal respiratory examination. Normal groin examination. Hospital Course Stable Pending Labs Laboratory Tests 09/11/17 04:55: Troponin I 6.66 Discussion & Recommendations Discussion Discharge took over 30 minutes to complete. Follow up appt.: With Dr. Clay in one to 2 weeks. Dicharge Diet: Cardiac Diet Home Medications Reviewed patient Home Medication Reconciliation Form Discharge Home Medications: Reviewed and agree with Discharge Medication list on patient's Discharge Instruction sheet Condition at discharge Stable Instructions to patient/family Dr Clay in one to two weeks. Clinical Quality Measures AMI/AHF: ASA po Prior to arrival: No DVT/VTE Risk/Contraindication: Risk Factor Score Per Nursin RFS Level Per Nursing on Admit: 4+=Very High Odalys CLAY MD Sep 11, 2017 09:26
[2017-09-11 09:55] VITALS: BP 144/87
== END 2017-09-11 09:55 | disposition home or self-care (01) | DRG 247 ==
LOC: EDUNIT# 12:51 → ER 12:53 → ICU 13:06 → CATH 13:06 → ICU 13:06 → UNDOADMIN 13:07 → CATH 15:19 → ICU 15:19 → UNDODISIN 09-11 09:55
PROVIDERS: ADMIT Internal Medicine Interventional Cardiology; ATTEND Internal Medicine Interventional Cardiology
PROC: 027034Z Dilation of Coronary Artery, One Artery with Drug-eluting Intraluminal Device, Percutaneous Approach (ICD-10-PCS; principal; 2017-09-09)
PROC: 02703DZ Dilation of Coronary Artery, One Artery with Intraluminal Device, Percutaneous Approach (ICD-10-PCS; 2017-09-09)
PROC: 4A023N7 Measurement of Cardiac Sampling and Pressure, Left Heart, Percutaneous Approach (ICD-10-PCS; 2017-09-09)
PROC: B2111ZZ Fluoroscopy of Multiple Coronary Arteries using Low Osmolar Contrast (ICD-10-PCS; 2017-09-09)
PROC: B2151ZZ Fluoroscopy of Left Heart using Low Osmolar Contrast (ICD-10-PCS; 2017-09-09)
DX: I21.19 ST elevation (STEMI) myocardial infarction involving other coronary artery of inferior wall (principal); I25.10 Atherosclerotic heart disease of native coronary artery without angina pectoris; I10 Essential (primary) hypertension; E78.5 Hyperlipidemia, unspecified; F17.210 Nicotine dependence, cigarettes, uncomplicated
CPT/HCPCS: 36415; 80048; 80053; 80061; 83735; 83874; 84484; 85025; 85027; 85347; 85610; 85730; 92929; 92941; 92978; 93005; 93041; 93306; 93458; 96374

== ENCOUNTER → 2018-02-06 | Outpatient (CLI) | payer BC ==
[~2018-02-06] MED LIST changes: +ACHD5005 PO; +ASPI-983 PO; +ATOR80TA76 PO; +CATHETER FLUSH 10 ML SYR IV PRN; +CLOP75TA28 PO; +LISI10TA2 PO; +METO50TA15 PO; +REGADENOSON 0.4 MG/5 ML SYR (LEXISCAN) IV ONE
[2018-02-06 10:07] VITALS: BP 159/86
--- NOTE | 2018-02-06 15:36 | Cardiology Stress Test Report ---
Stress Test Report Type of NM Stress Test: Test Type: LEXISCAN 0.4MG/5ML Date of Procedure/Referring: Date of Procedure: February 06, 2018 PCP Odalys Mo MD Admitting Physician Ruslan Fowler DO Indications: Chest pain Baseline Heart Rate: 60 Baseline Blood Pressure: Blood Pressure Systolic: 159 Blood Pressure Diastolic: 86 Baseline EKG: Baseline EKG: sinus rhythm Summary: The patient was brought to the stress lab after informed consent was taken. Stress test was performed according to the Lexiscan protocol. 0.4 mg of IV Lexiscan was given. Low-grade exercise was performed. Baseline EKG showed sinus rhythm at 60 BPM and blood pressure 159/86 mmHg. Maximum heart rate of 111 bpm and blood pressure 197/88 mmHg. Patient did not have any chest pain, EKG changes or arrhythmias noted during the stress test. 10.8 mCi of Myoview was given for rest imaging and 29.7 mCi of Myoview was given for stress imaging. Transient ischemic dilatation score of 1.12. Ejection fraction of 51 percent with normal wall motion. Normal myocardial perfusion imaging during rest and stress. Conclusion: Pharmacological stress test was normal. Normal LV function with no wall motion abnormalities. Hypertension. Normal myocardial perfusion imaging. Odalys MO MD February 06, 2018 3:36 pm
== END ==
LOC: CARD 07:53
PROVIDERS: ATTEND Internal Medicine Interventional Cardiology
DX: R07.9 Chest pain, unspecified (principal); I10 Essential (primary) hypertension; I25.10 Atherosclerotic heart disease of native coronary artery without angina pectoris; E78.5 Hyperlipidemia, unspecified; E66.9 Obesity, unspecified; Z72.0 Tobacco use
CPT/HCPCS: 78452; 93017

== ENCOUNTER → 2018-03-07 | Outpatient (CLI) | payer BC ==
[~2018-03-07] MED LIST changes: -CATHETER FLUSH 10 ML SYR IV PRN; -REGADENOSON 0.4 MG/5 ML SYR (LEXISCAN) IV ONE
[2018-03-07 08:05] LABS: ALANINE AMINOTRANSFERASE 19 U/L (0-55); ALBUMIN 4.5 GM/DL (3.2-4.5); ALKALINE PHOSPHATASE 117 U/L (40-136); BILIRUBIN,TOTAL 0.9 MG/DL (0.1-1.0); BUN/CREATININE RATIO 19; CALCIUM 9.4 MG/DL (8.5-10.1); CARBON DIOXIDE 22 MMOL/L (21-32); CHLORIDE 109 MMOL/L (98-107); CHOLESTEROL 89 MG/DL (< 200); CREATININE SERUM 0.69 MG/DL (0.60-1.30); GFR ESTIMATED > 60; GLUCOSE 114 MG/DL (70-105); HDL CHOLESTEROL 20 MG/DL (40-60); POTASSIUM 4.1 MMOL/L (3.6-5.0); SODIUM 141 MMOL/L (135-145); TOTAL PROTEIN 7.4 GM/DL (6.4-8.2); TRIGLYCERIDES 217 MG/DL (<150); VLDL CHOLESTEROL 43 MG/DL (5-40)
== END ==
LOC: LAB 07:32
PROVIDERS: ATTEND Internal Medicine Interventional Cardiology
DX: I25.10 Atherosclerotic heart disease of native coronary artery without angina pectoris (principal); I73.9 Peripheral vascular disease, unspecified; I10 Essential (primary) hypertension; E78.5 Hyperlipidemia, unspecified; E66.9 Obesity, unspecified; Z72.0 Tobacco use
CPT/HCPCS: 36415; 80053; 80061

== ENCOUNTER → 2020-03-10 | Outpatient (CLI) | payer BC, OTHER ==
[~2020-03-10] VITALS: Ht 177 cm; Wt 95.0 kg
[~2020-03-10] MED LIST changes: +REGADENOSON 0.4 MG/5 ML SYR (LEXISCAN) IV ONE
[2020-03-10] MEDS: CATHETER FLUSH 10 ML SYR IV PRN ×2 (10:03→10:51)
[2020-03-10 10:48] VITALS: BP 157/96
--- NOTE | 2020-03-14 15:09 | Cardiology Stress Test Report ---
Stress Test Report Type of NM Stress Test: Test Type: LEXISCAN 0.4MG/5ML Date of Procedure/Referring: Date of Procedure: Mar 10, 2020 PCP Odalys Mo MD Admitting Physician Ruslan Fowler DO Indications: Hypertension Baseline Heart Rate: 68 Baseline Blood Pressure: Blood Pressure Systolic: 157 Blood Pressure Diastolic: 96 Baseline EKG: Baseline EKG: sinus rhythm Summary & Conclusion: Summary: The patient was brought to the stress lab after informed consent was taken. Stress test was performed according to the Lexiscan protocol. 0.4 mg of IV Lexiscan was given. Low-grade exercise was performed. Baseline EKG showed sinus rhythm at 68 bpm and blood pressure of 151/95 mmHg. Maximum heart rate of 77 bpm and blood pressure 172/98 mmHg. Patient did not have any chest pain, arrhythmias or ST segment changes during the stress test. 10.83 mCi of Myoview were given for rest imaging and 29.9 mCi of Myoview given for stress imaging. Transient ischemic dilatation score 1.02, EF 57 percent. Normal wall motion. Normal myocardial perfusion imaging during rest and stress. Conclusion: Pharmacological stress test was negative for ischemia. Normal LV function with no wall motion abnormalities. Normal myocardial perfusion imaging during rest and stress. Odalys MO MD Mar 14, 2020 15:09
== END ==
LOC: CARD 09:29
PROVIDERS: ATTEND Internal Medicine Interventional Cardiology
DX: I25.10 Atherosclerotic heart disease of native coronary artery without angina pectoris (principal); I10 Essential (primary) hypertension; E78.5 Hyperlipidemia, unspecified; E66.9 Obesity, unspecified; Z72.0 Tobacco use
CPT/HCPCS: 78452; 93017

== ENCOUNTER → 2020-03-11 | Outpatient (CLI) | payer BC, OTHER ==
[~2020-03-11] MED LIST changes: -REGADENOSON 0.4 MG/5 ML SYR (LEXISCAN) IV ONE
== END ==
LOC: CARD 11:51
PROVIDERS: ATTEND Internal Medicine Interventional Cardiology
DX: R07.2 Precordial pain (principal); E78.5 Hyperlipidemia, unspecified; I10 Essential (primary) hypertension; I25.10 Atherosclerotic heart disease of native coronary artery without angina pectoris; Z72.0 Tobacco use; E66.9 Obesity, unspecified
CPT/HCPCS: 93306

== ENCOUNTER 2021-03-21 09:00 | Day surgery (SDC) | payer BC ==
[2021-03-21] VITALS (10 sets, daily range): BP systolic 113–144; BP diastolic 65–96
[~2021-03-21] VITALS: Ht 178 cm; Wt 102.0 kg
[2021-03-21 07:44] LABS: HEMATOCRIT 54 % (40-54); HEMOGLOBIN 17.2 g/dL (13.3-17.7); MEAN CORPUSCULAR HEMOGLOBIN 28 pg (25-34); MEAN CORPUSCULAR HGB CONC 32 g/dL (32-36); MEAN CORPUSCULAR VOLUME 88 fL (80-99); MEAN PLATELET VOLUME 11.2 fL (9.0-12.2); PLATELET COUNT 282 10^3/uL (130-400); WHITE BLOOD COUNT 11.9 10^3/uL (4.3-11.0)
[2021-03-21 08:06] LABS: ALANINE AMINOTRANSFERASE 13 U/L (0-55); ALBUMIN 4.7 GM/DL (3.2-4.5); ALKALINE PHOSPHATASE 104 U/L (40-136); BILIRUBIN,TOTAL 1.2 MG/DL (0.1-1.0); BUN/CREATININE RATIO 13; CALCIUM 9.9 MG/DL (8.5-10.1); CARBON DIOXIDE 26 MMOL/L (21-32); CHLORIDE 103 MMOL/L (98-107); CHOLESTEROL 153 MG/DL (< 200); CREATININE SERUM 0.82 MG/DL (0.60-1.30); GFR ESTIMATED > 60; GLUCOSE 118 MG/DL (70-105); HDL CHOLESTEROL 26 MG/DL (40-60); POTASSIUM 3.7 MMOL/L (3.6-5.0); SODIUM 141 MMOL/L (135-145); TRIGLYCERIDES 306 MG/DL (<150); VLDL CHOLESTEROL 61 MG/DL (5-40)
[2021-03-21 08:07] LABS: PROTHROMBIN TIME PATIENT 13.3 SEC (12.2-14.7)
[~2021-03-21 09:00] MED LIST changes: +AMLO-251 PO; +ASPI-1238 PO; -ASPI-983 PO; +BACL10TA PO; -LISI10TA2 PO; +LISI10TA25 PO; +NITR0.4T39 SL; +NS IV 1000 ML 1,000 ML IV SCH
--- NOTE | 2021-03-21 09:41 | Discharge Inst-Post CATH ---
Discharge Inst-CATH/EP Post Cardiac Cath/EP D/C Inst Follow Up/Plan F/u with Dr Barrow next week NO SMOKING <b>CARDIAC CATH/EP PROCEDURE DISCHARGE INSTRUCTIONS</b> ACTIVITY * Go Home directly and rest. * Limit activity of the leg (or wrist if it was used) for 7 days including aerobics, swimming, jogging, bicycling, etc. * Restrict stair-climbing for 7 days if possible, if not, climb up with your non-cath leg, then bring together on the same step. * Avoid lifting, pushing, pulling or excessive movement of the affected extremity for 7 days. * Customary sexual activity may be resumed after 2 days-use caution not to use a position that strains or causes pain to the affected extremity. * No driving for 24 hours. * NO SMOKING. * Avoid straining for bowel movements for 7 days. * Gentle walking on level ground is allowed. * Returning to work will depend on the type of procedure and the results. Your doctor will discuss this with you. CALL YOUR DOCTOR FOR ANY OF THE FOLLOWING: *If bleeding from the puncture site occurs- Apply gentle pressure to site with clean cloth and call your doctor or EMS. * If a knot or lump forms under the skin, increases in size, or causes pain. * If bruising appears to be worsening or moving further down your leg instead of disappearing. * Temperature above 101 F. CARE OF YOUR GROIN INCISION; * Bruising or purple discoloration of the skin near the puncture site is common. * You may shower only, no bathtub bathing for 5 days. Be careful to avoid slipping as your leg may feel stiff. * If a closure device was used on your femoral artery, please see the attached guide regarding care of the device and your leg. * Leave dressing on FOR 24 hours. CARE OF YOUR WRIST INCISION; * Bruising or purple discoloration of the skin near the puncture site is common. * You may shower. * DO NOT submerge wrist. * Leave dressing on FOR 24 hours. YOGESH BARROW MD [facility] CCDS Mar 21, 2021 09:41
--- NOTE | 2021-03-21 09:41 | Discharge Inst-Cardiology ---
Discharge Inst-Cardiac Discharge Medications Continued Medications: Amlodipine Besylate (Amlodipine Besylate) 10 Mg Tablet 10 MG PO DAILY, TAB Aspirin (Aspirin EC) 81 Mg Tablet.dr 81 MG PO DAILY, TAB Atorvastatin Calcium (Atorvastatin Calcium) 80 Mg Tablet 80 MG PO HS, TAB Baclofen (Baclofen) 10 Mg Tablet 10 MG PO TID, TAB Clopidogrel Bisulfate (Clopidogrel) 75 Mg Tablet 75 MG PO DAILY, TAB Hydrocodone Bit/Acetaminophen (Lortab 5 Mg Tablet) 1 Each Tablet 1 TAB PO BID PRN for PAIN-MODERATE Lisinopril (Lisinopril) 10 Mg Tablet 10 MG PO DAILY, TAB Metoprolol Tartrate (Metoprolol Tartrate) 50 Mg Tablet 50 MG PO BID, TAB Nitroglycerin (Nitroglycerin) 0.4 Mg Tab.subl 0.4 MG SL UD PRN for CHEST PAIN, TAB Patient Instructions Patient Instructions: NO SMOKING YOGESH ALONSO MD FACP FAC CCDS Mar 21, 2021 09:41
[2021-03-21] MEDS ORDERED: PATIENT MAY USE OWN MEDS, ALL PO SCH (09:45)
[2021-03-21] MEDS ORDERED: NS IV 1000 ML 1,000 ML IV SCH (09:45)
--- NOTE | 2021-03-21 11:06 | CARDIAC CATHETERIZATION ---
DATE OF SERVICE: 03/21/2021 CARDIAC CATHETERIZATION REPORT The patient is a 50-year-old gentleman who is known to have coronary artery disease and has had stenting of the left anterior descending and the right coronary artery in the past. Lately, he has had chest discomfort suggestive of recurrent angina. Cardiac catheterization was recommended. Informed consent was obtained. DESCRIPTION OF PROCEDURE: He was brought to the cardiac catheterization laboratory in a fasting state. Right groin was prepared and draped in the usual sterile fashion. Lidocaine 1% was used for local anesthesia. Modified Seldinger technique was used to advance a 5-[place] sheath in the right femoral artery. A 5[place] JL4 catheter was used for left coronary angiography, [place] JR4 catheter was used for right coronary angiography, 5[place] pigtail catheter was used for left heart catheterization and left ventricular angiography. Angiography of the right femoral artery had been carried out through the sheath at the beginning the procedure. At the end of the procedure, Mynx was used to achieve hemostasis. He tolerated the procedure well. HEMODYNAMICS: Left ventricular end-diastolic pressure following coronary angiography was 12 mmHg. There was no significant pressure gradient on pullback across the aortic valve. LEFT VENTRICULAR ANGIOGRAPHY: Left ventricular angiography was carried out in the right anterior oblique projection. Global left ventricular systolic function normal. No regional wall motion abnormalities seen. Left ventricular ejection fraction approximately 60%. CORONARY ANGIOGRAPHY: Left main coronary artery is free of significant disease. Left anterior descending artery has mild diffuse plaque in its proximal and mid portion. In the mid portion of the left anterior descending artery, there is an intact stent, which does not exhibit any significant in-stent restenosis. The left circumflex artery does not exhibit significant disease. Left circumflex artery is a nondominant. A very small caliber ramus intermedius artery has a 90% mid vessel stenosis. This is of a very small caliber and is not amenable to intervention. Right coronary artery is dominant. There is a patent stent in its proximal portion that exhibits approximately 30% in-stent restenosis. CONCLUSIONS: 1. Patent stents in the left anterior descending and the right coronary arteries. The right coronary artery stent is known to be a bare metal stent (3 x 15 mm) that exhibits 30% in-stent restenosis. The right coronary artery is dominant. The left anterior descending is known to have a drug-eluting stent (3 x 15 mm) that does not exhibit significant in-stent restenosis. A very small caliber ramus intermedius artery exhibits 90% mid vessel stenosis, but is too small for any mechanical intervention. The rest of the coronary vessels exhibit mild plaque. 2. Normal global left ventricular systolic function with ejection fraction approximately 60%. 3. Normal left ventricular end-diastolic pressure. DISCUSSION AND RECOMMENDATIONS: Based on results of the study, it appears appropriate to continue a conservative approach. We have advised him to quit smoking immediately and completely. We have advised compliance with his medications and close clinical followup for adjustment of medications. Job ID: [id number] DocumentID: [id number] Dictated Date: 03/21/2021 09:28:22 Manager Fire Date: 03/21/2021 11:05:40 Dictated By: YOGESH ALONSO MD, MA, FACP, FACC, MTDD
== END 2021-03-21 13:00 | disposition home or self-care (01) ==
LOC: CATH 09:00 → SDC 09:47 → CATH 13:00
PROVIDERS: ATTEND Internal Medicine Cardiovascular Disease
DX: I25.10 Atherosclerotic heart disease of native coronary artery without angina pectoris (principal); T82.855A Stenosis of coronary artery stent, initial encounter; I10 Essential (primary) hypertension; G89.29 Other chronic pain; M54.9 Dorsalgia, unspecified; E78.2 Mixed hyperlipidemia; F17.210 Nicotine dependence, cigarettes, uncomplicated; Z79.82 Long term (current) use of aspirin; Z79.02 Long term (current) use of antithrombotics/antiplatelets; Z79.899 Other long term (current) drug therapy; Z79.891 Long term (current) use of opiate analgesic; Z83.3 Family history of diabetes mellitus
CPT/HCPCS: 80053; 80061; 85027; 85610; 85730; 87081; 93458; C1760; C1894; 36415

== ENCOUNTER → 2023-08-13 | Outpatient (CLI) | payer MEDICAID, OTHER ==
[~2023-08-13] MED LIST changes: -NS IV 1000 ML 1,000 ML IV SCH
--- NOTE | 2023-08-13 16:50 | Diagnostic Imaging Report ---
CLINICAL INDICATION: Patient with cervical degenerative disk disease. EXAM: MRI of the cervical spine without contrast. Sequences include sagittal T2, sagittal T1, sagittal T2 fat-sat, and axial T2. COMPARISON: None. FINDINGS: There is no acute cervical spine fracture or dislocation. There are no significant Modic degenerative signal changes. There is no significant paraspinal soft tissue abnormality. Limited visualization of posterior fossa is unremarkable. There is localized deformity and concern for localized increased T2 signal involving the cervical cord at C4-C5 level. 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 There are degenerative spurs involving the cervical spine. C1-C2: There is no significant central canal stenosis. C2-C3: There is mild bilateral facet arthropathy. There is no significant central canal or neural foramen narrowing. C3-C4: There is a small posterior disk bulge. There is mild left facet arthropathy/hypertrophy and mild right facet arthropathy. There is mild left neural foramen narrowing. There is no significant right neural foramen narrowing. There is mild central canal stenosis. C4-C5: There is a diffuse disk bulge with superimposed small central disk extrusion/herniation with roughly 5 mm of cephalad disk migration. There is severe central canal stenosis. There is severe right neural foramen narrowing and moderate left neural foramen narrowing. C5-C6: There is a small posterior disk bulge and mild bilateral facet arthropathy. There is mild right neural foramen narrowing and moderate left neural foramen narrowing. There is moderate to severe central canal stenosis. C6-C7: There is a small posterior disk bulge and mild central canal narrowing. There is moderate left neural foramen narrowing and mild right neural foramen narrowing. C7-T1: There is mild left facet arthropathy. There is mild to moderate left neural foramen narrowing. There is no significant right neural foramen narrowing. 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 MRI of the thoracic spine with and without contrast is suggested for further evaluation. 2: There is encroachment upon the cervical cord at C4-C5 level with abnormal cord signal due to disk disease likely related to cord contusion. 3: There is C4-C5 diffuse disk bulge with superimposed central disk extrusion/herniation with cephalad disk migration. There is severe central canal stenosis, severe right neural foramen narrowing and moderate left neural foramen narrowing. 4: There is a small C5-C6 posterior disk bulge. There is moderate to severe central canal stenosis and moderate left neural foramen narrowing. Dictated by: Dictated on workstation # [id number]
== END ==
LOC: RAD 12:36
PROVIDERS: ATTEND Physician Assistant
DX: M50.30 Other cervical disc degeneration, unspecified cervical region (principal); G56.92 Unspecified mononeuropathy of left upper limb
CPT/HCPCS: 72141

== ENCOUNTER → 2023-08-20 | Outpatient (CLI) | payer MEDICAID ==
--- NOTE | 2023-08-20 16:32 | Diagnostic Imaging Report ---
PROCEDURE: MRI lumbar spine. TECHNIQUE: Multiplanar, multisequence MRI of the lumbar spine was performed without contrast. INDICATION: Low back pain COMPARISON: MRI of the cervical spine on 08/13/2023. FINDINGS: Postsurgical changes from prior posterior fusion and laminectomy from L3 to L5. Disc replacement at L4-L5. No marrow replacement process to suggest malignancy. No acute fracture of the lumbar spine. The conus and cauda equina are normal. The visualized abdominal soft tissues are normal. There is atrophy of the paraspinal musculature. L1-L2: Disc bulge. Mild facet arthropathy. No significant spinal canal or neural foraminal stenosis. L2-L3: Disc bulge. Moderate facet arthropathy. Mild spinal canal narrowing. Mild bilateral neural foraminal narrowing. L3-L4: Posterior decompression. No significant spinal canal or neuroforaminal stenosis. L4-L5: Posterior decompression. No significant spinal canal and neuroforaminal stenosis. L5-S1: Disc bulge. Mild facet arthropathy. Mild spinal canal narrowing. Mild bilateral neural foraminal narrowing. IMPRESSION: Post surgical changes from prior posterior decompression laminectomy from L3 to L5. Disc replacement at L4-L5. No significant spinal canal neuroforaminal stenosis. Dictated by: Dictated on workstation # [id number]
== END ==
LOC: RAD 14:44
PROVIDERS: ATTEND Physician Assistant
DX: M54.41 Lumbago with sciatica, right side (principal); M54.42 Lumbago with sciatica, left side; M51.36 Other intervertebral disc degeneration, lumbar region; Z98.890 Other specified postprocedural states
CPT/HCPCS: 72148